=== PATIENT | male | born 1990 | race African-American/Black ===

== ENCOUNTER 2021-04-07 13:49 | Emergency (ER) | payer OTHER, SELFPAY ==
--- NOTE | ~2021-04-07 | XR_ITS ---
EXAMINATION: XR hand RT min 3V, XR wrist RT min 3V EXAM DATE: 04/07/2021 14:22 (accession [id number]), 04/07/2021 14:23 (accession [id number]) INDICATION: Initial encounter following injury, with pain of the right hand, wrist. TECHNIQUE: Right hand frontal, lateral and oblique projections obtained and reviewed. Right wrist fro ntal, frontal with ulnar deviation, oblique and lateral projections obtained and reviewed. There is no prior study for comparison. FINDINGS: Right metacarpal bones are unremarkable. Right wrist scapholunate joint space is maintain ed. There are no acute fractures or dislocations identified. There is no subcutaneous gas. The soft tissue is unremarkable. There are no radiopaque foreign bodies. IMPRESSION: 1. Right hand, wrist exam without acute osseous findings. Reviewed, dictated and finalized at location A. IMPRESSION: 1. Right hand, wrist exam without acute osseous findings.
--- NOTE | ~2021-04-07 | XR_ITS ---
EXAMINATION: XR ankle RT min 3V EXAM DATE: 04/07/2021 14:22 INDICATION: Initial encounter following injury, with pain of the right ankle. Surgery 5 years ago. TECHNIQUE: Right ankle frontal, lateral and oblique projections obtained and reviewed. There is no p rior study for comparison. FINDINGS: The right ankle mortise appears intact. There are no acute fractures or dislocations iden tified. There is no subcutaneous gas. The soft tissue is unremarkable. Fixation hardware in the fibula and medial malleolus without hardware fracture. The medial malleolar tip screw may have some lucency surrounding it, some evidence of loosening, and there does not appear to be solid bone bridging of the medial malleolus. IMPRESSION: 1. Right ankle exam without acute osseous findings. 2. Medial malleolar internal fixation screw with some lucency suspected suspicious for loosening, an d absence of solid bone bridging. 3. Intact fibular plate, screws. Reviewed, dictated and finalized at location A. IMPRESSION: 1. Right ankle exam without acute osseous findings. 2. Medial malleolar internal fixation screw with some lucency suspected suspic ious for loosening, and absence of solid bone bridging. 3. Intact fibular plate, screws.
--- NOTE | ~2021-04-07 | XR_ITS ---
XR foot LT min 3V DATE: 04/07/2021 15:44 INDICATION: Fall, left foot injury. Generalized left foot pain. TECHNIQUE: 4 views COMPARISON: None FINDINGS: No fracture or dislocation, periosteal reaction or bone destruction, erosive change or anitra drocalcinosis. IMPRESSION: Negative Reviewed, dictated and finalized at location B. IMPRESSION: Negative
[2021-04-07 13:59] VITALS: BP 145/91; PULSE 100; RESP 18; TEMP 36.7; O2SAT 99
--- NOTE | 2021-04-07 15:33 | ED.GENADULT ---
HPI - General Adult General Chief complaint: Extremity Injury, Lower Stated complaint: R Ankle Pain/Fall Time Seen by Provider: 04/07/21 15:22 Source: patient History of Present Illness HPI narrative: Patient is a 31 y/o male complaining of right ankle pain after a fall at work. 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 He describes his pain as sharp and rates it as 10/10. He denies hitting head or passing out. He also has left foot pain and right wrist pain. He has no chest pain, abdominal pain, neck pain or back pain. Related Data Allergies Allergy/AdvReac Type Severity Reaction Status Date / Time Penicillins Allergy Unknown Verified 04/07/21 15:57 Review of Systems Constitutional: Constitutional: Denies chills, Denies fever(s), Denies headache(s) and Denies weakness Eyes: Eyes: Denies blurry vision ENT: Denies headache(s) and Denies neck pain Cardiovascular: Cardiovascular: Denies chest pain and Denies dyspnea Respiratory: Respiratory: Denies cough and Denies dyspnea Gastrointestinal: Gastrointestinal: Denies abdominal pain, Denies diarrhea, Denies nausea and Denies vomiting Genitourinary: Genitourinary: Denies hematuria and Denies dysuria Musculoskeletal: Musculoskeletal: Reports as per HPI, Denies back pain, Denies neck pain and Reports other (right ankle, left foot, right wrist pain) Neurologic: Denies headache(s) and Denies weakness Exam Const: General: no acute distress and well developed Orientation/consciousness: oriented to person, oriented to place, oriented to time and patient oriented x3 HENMT: Head: normocephalic Ears: external ears normal General nose exam: Normal external nose present Eyes: General: appearance normal, both eyes and all related structures Conjunctivae: conjunctivae normal Neck: Neck: normal visual inspection and full ROM Chest: Chest palpation & inspection: normal inspection of the chest and no tenderness Resp: Effort & Inspection: normal respiratory effort Auscultation: clear to auscultation bilaterally Cardio: Rate: regular rate Rhythm: regular rhythm GI: GI Palp: No abdominal tenderness and Yes Soft to palpation Skin: General skin exam: normal color and turgor normal Neuro: General: oriented to person, oriented to place, oriented to time and patient oriented x3 Cognition (Neuro): normal cognition Extrem: General: normal to inspection, full ROM and no pedal edema Psych: Appearance: grossly normal Mental Status: mental status grossly normal Affect: normal affect Course Vital Signs Vital signs: Vital Signs Temperature 36.7 C 04/07/21 13:59 Pulse Rate 100 04/07/21 13:59 Respiratory Rate 18 04/07/21 13:59 Blood Pressure 145/91 H 04/07/21 13:59 Pulse Oximetry 99 04/07/21 13:59 Temperature 36.8 C 04/07/21 15:59 Pulse Rate 84 04/07/21 15:59 Respiratory Rate 16 04/07/21 15:59 Blood Pressure 144/97 H 04/07/21 15:59 Pulse Oximetry 99 04/07/21 15:59 Medical Decision Making Vital Signs Vital Signs: Vital Signs Temperature 36.7 C 04/07/21 13:59 Pulse Rate 100 04/07/21 13:59 Respiratory Rate 18 04/07/21 13:59 Blood Pressure 145/91 H 04/07/21 13:59 Pulse Oximetry 99 04/07/21 13:59 Temperature 36.8 C 04/07/21 15:59 Pulse Rate 84 04/07/21 15:59 Respiratory Rate 16 04/07/21 15:59 Blood Pressure 144/97 H 04/07/21 15:59 Pulse Oximetry 99 04/07/21 15:59 Discharge Plan Discharge Clinical Impression: Foot sprain Qualifiers: Encounter type: initial encounter Laterality: left Qualified Code(s): S93.602A - Unspecified sprain of left foot, initial encounter Right ankle sprain Qualifiers: Encounter type: initial encounter Involved ligament of ankle: unspecified ligament Qualified Code(s): S93.401A - Sprain of unspecified ligament of right ankle, initial encounter Right wrist sprain Qualifiers: Encounter type: initial encounter Qualified Code(s): S63.501A - Unspecified sprain of right wrist,
[2021-04-07 15:59] VITALS: BP 144/97; PULSE 84; RESP 16; TEMP 36.8; O2SAT 99
== END 2021-04-07 17:20 | disposition home or self-care (01) ==
PROVIDERS: Emergency Provider Emergency Medicine; PCP Internal Medicine
DX: S93.401A Sprain of unspecified ligament of right ankle, initial encounter (principal); S93.602A Unspecified sprain of left foot, initial encounter; S63.501A Unspecified sprain of right wrist, initial encounter; W18.09XA Striking against other object with subsequent fall, initial encounter
CPT/HCPCS: 73110; 73130; 73610; 73630; 99284